=== PATIENT | male | born 1980 | race African-American/Black ===

== ENCOUNTER 2018-11-20 19:16 | Emergency (ER) | payer OTHER ==
[~2018-11-20] VITALS: Ht 172.7 cm; Wt 83.9 kg
[2018-11-20 19:19] VITALS: BP 123/98; Ht 172.7 cm; Wt 83.9 kg
== END 2018-11-20 20:28 | disposition other institution (70) ==
LOC: ED 19:16
DX: Z02.89 Encounter for other administrative examinations (principal)